=== PATIENT | female | born 2000 | race Caucasian/White ===

== ENCOUNTER 2022-08-13 19:30 | Emergency (ER) | payer OTHER ==
[~2022-08-13] VITALS: Ht 165.1 cm; Wt 90.9 kg
[2022-08-13 19:35] VITALS: BP 129/82; PULSE 94; TEMP 98.1
[2022-08-13 20:23] LABS: STREP SCREEN NEGATIVE
== END 2022-08-13 20:47 | disposition home or self-care (01) ==
LOC: COL.ER 19:30 → EDBD 19:31 → COL.ER 19:31
PROVIDERS: Nurse Practitioner
DX: J02.9 Acute pharyngitis, unspecified (principal)